=== PATIENT | male | born 1975 | race Caucasian/White ===

== ENCOUNTER 2017-11-04 13:46 | Emergency (ER) | payer OTHER ==
[~2017-11-04] VITALS: Ht 167.6 cm; Wt 94.0 kg
[2017-11-04] MEDS ORDERED: PERCOCET 5/31 TABLET PO (15:18)
[2017-11-04 16:26] LABS: HEMATOCRIT 43.8 % (38.0-50.0); MCH 34.3 PG (29.0-34.0); MCHC 36.5 G/DL (30.0-36.0); PLATELET COUNT 199 K/uL (156-360); RBC DIS.WIDTH-CV 12.1 % (11.8-14.6); RED BLOOD COUNT 4.66 M/uL (4.00-5.50); WHITE BLOOD COUNT 10.1 K/uL (4.1-10.2)
[2017-11-04 16:33] LABS: CHLORIDE 109 mEq/L (99-109); POTASSIUM 4.1 mEq/L (3.7-5.4); SODIUM 140 mEq/L (136-147)
[2017-11-04 16:35] LABS: GLUCOSE 111 mg/dL (70-99)
[2017-11-04 16:39] LABS: CREATININE 1.2 mg/dL (0.6-1.3); GFR ESTIMATE (CALCULATED) > 59 mL/min/ (58.99-99999); UREA NITROGEN (BUN) 15 mg/dL (9-23)
[2017-11-04 16:50] VITALS: BP 140/78
== END 2017-11-04 17:00 | disposition home or self-care (01) ==
LOC: EME 13:46
PROVIDERS: Nurse Practitioner Family
DX: S82.51XA Displaced fracture of medial malleolus of right tibia, initial encounter for closed fracture (principal); S93.04XA Dislocation of right ankle joint, initial encounter; W10.9XXA Fall (on) (from) unspecified stairs and steps, initial encounter; F17.200 Nicotine dependence, unspecified, uncomplicated; Z88.5 Allergy status to narcotic agent
CPT/HCPCS: 73610; 73700; 80048; 85027; 93005; 99281; 99285; J2405; J3010; J7030